=== PATIENT | female | born 1980 | race Caucasian/White ===

== ENCOUNTER 2021-02-06 16:08 | Emergency (ER) | payer SELFPAY ==
[~2021-02-06] VITALS: Ht 149.9 cm; Wt 87.5 kg
[2021-02-06 16:13] VITALS: BP 130/77
[2021-02-06] MEDS ORDERED: KETOROLAC 30 MG/ML VIAL IM ONE (16:45)
[2021-02-06] MEDS ORDERED: PROCHLORPERAZINE 5 MG TAB PO ONE (16:45)
[2021-02-06] MEDS ORDERED: diazePAM 5 MG TAB PO ONE (16:45)
[2021-02-06 17:16] LABS: BASOPHILS % (AUTO) 0.4 % (0.0-2.0); EOSINOPHILS # (AUTO) 0.1 K/uL (0-0.4); EOSINOPHILS % (AUTO) 1.1 % (0.0-4.0); HEMATOCRIT 40.6 % (36-48); HEMOGLOBIN 13.6 g/dL (12.0-16.0); LYMPHOCYTES # (AUTO) 2.8 K/uL (2.5-16.5); LYMPHOCYTES % (AUTO) 35.3 % (20.5-51.1); MEAN CORPUSCULAR HEMOGLOBIN 30 pg (27-31); MEAN CORPUSCULAR HGB CONC 34 g/dL (33-37); MEAN CORPUSCULAR VOLUME 90.2 fL (80-94); MONOCYTES # (AUTO) 0.5 K/uL (0.8-1.0); MONOCYTES % (AUTO) 6.1 % (1.7-9.3); NEUTROPHILS # (AUTO) 4.4 K/uL (1.8-7.7); NEUTROPHILS % (AUTO) 57.1 % (42.2-75.2); PLATELET COUNT (AUTO) 265 K/uL (140-450); RED CELL DISTRIBUTION WIDTH 13.9 % (11.6-13.7); WHITE BLOOD COUNT (AUTO) 7.8 K/uL (4.8-10.8)
[2021-02-06 17:30] LABS: ALBUMIN 3.3 g/dL (3.4-5.0); ANION GAP 12.5 (8-16); CARBON DIOXIDE 26.3 mmol/L (21-32); CREATININE 0.7 mg/dL (0.6-1.3); POTASSIUM 3.8 mmol/L (3.5-5.1); TOTAL BILIRUBIN 0.2 mg/dL (0.0-1.0)
[2021-02-06] MEDS ORDERED: PROC-62 PO (18:37)
[2021-02-06] MEDS ORDERED: IBUP-2213 PO (18:37)
[2021-02-06 18:50] VITALS: BP 130/77
== END 2021-02-06 18:50 | disposition home or self-care (01) ==
LOC: MED 16:08
DX: R51.9 Headache, unspecified (principal); R07.9 Chest pain, unspecified
CPT/HCPCS: 36415; 71045; 80053; 84484; 85025; 93005; 96372; 99285; J1885; Q0092; Q0164